=== PATIENT | female | born 1935 | race African-American/Black ===

== ENCOUNTER 2016-07-31 23:53 | Emergency (ER) | payer MEDICARE, OTHER ==
--- NOTE | ~2016-07-31 | CT107 ---
[facility] A Service of [facility] RADIOLOGY TEXT RESULTS PATIENT: REINA BARRAZA LOCATION: [facility] : 31 UNIT #: [id number] AGE: [address]: Lorenzo Varma MD SEX: F ORDER DR: [id number] [facility] [address] [place], [place] [address] [id number] E MR#: [id number] Acc #: [id number] NAME: REINA BARRAZA. : 1935 SEX: F STUDY DATE/TIME: 08/01/2016 2:11 UNIT: [facility] ROOM: STUDY DESCRIPTION: CT Pelvis Wo Cont Attending Physician: Lorenzo Varma M.D. Ordering Physician: Susan Schaefer M.D. Primary Care Physician: Alonso Marquis M.D. MEDICAL IMAGING REPORT This report is preliminary unless electronic signature is present EXAM CT scan of the pelvis without contrast INDICATION Left hip pain after fall 2 days ago. FINDINGS Axial 2 mm images were obtained through the pelvis and sagittal and coronal reconstructions were generated. This CT examination was performed with one or more of the following radiation dose reduction techniques: automatic exposure control, adjustment of mA and/or kV according to patient size, and iterative reconstruction. No fracture is visible. Bones are normal. The bowel is normal. There is a large amount of feces in the rectum which is distended up to 8.3 cm in diameter. The bladder is normal. The uterus appears to have been removed. IMPRESSION 1. No hip fracture is visible. 2. Large amount of inspissated fecal material in the rectum measuring up to 8 cm in transverse dimension. Dictated by... Neri Pond M.D. THIS IS AN ELECTRONICALLY VERIFIED REPORT Neri Pond M.D. at 08/01/2016 1:52 PM CINDY/jatin TD: 08/01/2016 11:42 [facility] A Service of [facility] RADIOLOGY TEXT RESULTS PATIENT: REINA BARRAZA LOCATION: [facility] : 31 UNIT #: [id number] AGE: [address]: Lorenzo Varma MD SEX: F ORDER DR: JOB #: [id number] MEDICAL IMAGING REPORT Page 1 of 1 COPY
--- NOTE | ~2016-07-31 | CR150 ---
[facility] A Service of [facility] RADIOLOGY TEXT RESULTS PATIENT: REINA BARRAZA LOCATION: [facility] : 31 UNIT #: [id number] AGE: [address]: Lorenzo Varma MD SEX: F ORDER DR: [id number] [facility] [address] [place], [place] [address] [id number] E MR#: [id number] Acc #: [id number] NAME: REINA BARRAZA. : 1935 SEX: F STUDY DATE/TIME: 08/01/2016 1:44 UNIT: [facility] ROOM: STUDY DESCRIPTION: CR Hip Min 2 Views Lt Attending Physician: Lorenzo Varma M.D. Ordering Physician: Susan Schaefer M.D. Primary Care Physician: Alonso Marquis M.D. MEDICAL IMAGING REPORT This report is preliminary unless electronic signature is present EXAM Left hip HISTORY Left hip pain after fall 2 days ago FINDINGS An AP view of the pelvis and lateral view of the left hip were obtained. No fracture is identified. Bones are normal. IMPRESSION Normal AP pelvis and left hip Dictated by... Neri Pond M.D. THIS IS AN ELECTRONICALLY VERIFIED REPORT Neri oPnd M.D. at 08/01/2016 1:53 PM FEL/to TD: 08/01/2016 11:15 JOB #: [id number] MEDICAL IMAGING REPORT Page 1 of 1 COPY
== END 2016-08-01 03:20 | disposition home or self-care (01) ==
LOC: CED 23:53
DX: S70.02XA Contusion of left hip, initial encounter (principal); I10 Essential (primary) hypertension; W18.09XA Striking against other object with subsequent fall, initial encounter; Y92.009 Unspecified place in unspecified non-institutional (private) residence as the place of occurrence of the external cause
CPT/HCPCS: 72192; 73502; 99284